=== PATIENT | male | born 1955 | race Caucasian/White ===

== ENCOUNTER 2017-11-25 13:09 | Inpatient (IN) | payer MEDICARE, BC ==
[~2017-11-25] VITALS: Ht 182.9 cm; Wt 95.5 kg
[~2017-11-25 13:09] MED LIST: ASCO500C15 PO; BACL10TA2 PO; BISA-155 PO; BISA10SU60 RC; BISA5TAB10 PO; BUSP10TA10 PO; CHOL10002 PO; FLUT16SP26 BOTHNARES; KRIL1CAP2 PO; MAGN400O6 PO; MAGN64TA10 PO; MULT1TAB74 PO; POTA20TA19 PO; SENN-161 PO; VITA150T PO
[2017-11-25] MEDS ORDERED: ACET-2615 PO (13:49)
[2017-11-25] MEDS ORDERED: HYDR28CR14 TOP (13:49)
[2017-11-25] MEDS ORDERED: LORA10TA7 PO (13:49)
[2017-11-25] MEDS ORDERED: CHOL10002 PO (13:49)
[2017-11-25 14:16] LABS: BASOPHILS % (AUTO) 0.1 % (0-1); EOSINOPHILS % (AUTO) 0.4 % (0-6); HEMATOCRIT 49.5 % (42.0-52.0); HEMOGLOBIN 16.7 g/dl (14.0-17.9); LYMPHOCYTES # (AUTO) 0.7 X10'3 (1.1-4.8); LYMPHOCYTES % (AUTO) 9.6 % (21-51); MEAN CORPUSCULAR HEMOGLOBIN 30.9 PG (27.0-31.0); MEAN CORPUSCULAR HGB CONC 33.8 % (33.0-36.5); MEAN CORPUSCULAR VOLUME 91.6 FL (78-98); MEAN PLATELET VOLUME 7.9 FL (7.4-10.4); MONOCYTES # (AUTO) 0.8 X10'3 (0-0.9); MONOCYTES % (AUTO) 10.1 % (2-12); NEUTROPHILS # (AUTO) 6.2 X10'3 (1.8-7.7); NEUTROPHILS % (AUTO) 79.8 % (42-75); PLATELET COUNT 237 X10'3 (140-440); RED CELL DISTRIBUTION WIDTH 12.6 % (11.5-14.5); WHITE BLOOD COUNT 7.8 X10'3 (4.5-11.0)
[2017-11-25 14:31] LABS: ALANINE AMINOTRANSFERASE 53 U/L (12-78); ALBUMIN 3.6 G/DL (3.4-5.0); ALBUMIN/GLOBULIN RATIO 0.8 (1.1-1.5); ALKALINE PHOSPHATASE 208 IU/L (46-116); ANION GAP 8 (8-16); ASPARTATE AMINO TRANSFERASE 27 U/L (10-37); BILIRUBIN,TOTAL 0.8 MG/DL (0.1-1.0); BLOOD UREA NITROGEN 16 MG/DL (7-18); BUN/CREATININE RATIO 15.2 (5.4-32.0); CALCIUM 9.3 MG/DL (8.5-10.1); CHLORIDE 96 MMOL/L (99-107); CREATININE 1.05 MG/DL (0.60-1.10); GLUCOSE 124 MG/DL (70-104); POTASSIUM 4.5 MMOL/L (3.5-5.1); SODIUM 133 MMOL/L (135-145); TOTAL PROTEIN 8.1 G/DL (6.4-8.2); eGFR 72 ML/MIN
[2017-11-25] MEDS ORDERED: levoFLOXACIN-Levaquin 750MG/D5 150 ML IV STA (15:14)
[2017-11-25] MEDS ORDERED: magnesium Cl slow-release 64mg tablet PO PRN (15:55)
[2017-11-25] MEDS ORDERED: sennosides 8.6mg tablet PO PRN (15:55)
[2017-11-25] MEDS ORDERED: magnesium hydroxide 30ml (MOM) UD suspension PO PRN ×2 (15:55)
[2017-11-25] MEDS ORDERED: mag hydrox/Alum hydrox/simeth 30ml oral suspension PO PRN (15:55)
[2017-11-25] MEDS ORDERED: bisacodyl 5mg tablet.DR PO PRN (15:55)
[2017-11-25] MEDS ORDERED: potassium Cl 20 mEq SR tablet PO PRN ×2 (15:55)
[2017-11-25] MEDS ORDERED: magnesium 2GM in 50ml NS 50 ML IV PRN (15:55)
[2017-11-25] MEDS ORDERED: magnesium 4gm in 100ml NS 100 ML IV PRN (15:55)
[2017-11-25] MEDS ORDERED: potassium Cl 40MEQ/NS 500ml 500 ML IV PRN ×2 (15:55)
[2017-11-25] MEDS ORDERED: acetaminophen 325mg tablet PO PRN ×3 (15:55)
[2017-11-25] MEDS ORDERED: ondansetron/PF 4mg/2ml inj IV PRN (15:55)
[2017-11-25] MEDS ORDERED: [UNRECOGNIZED DRUG - REMARK] (17:03)
[2017-11-25] MEDS ORDERED: BISA-155 PO (17:10)
[2017-11-25] MEDS: normal saline 1000ml 1,000 ML IV SCH (17:32)
[2017-11-25] MEDS: ascorbic acid 500mg tablet PO SCH (20:00)
[2017-11-25] MEDS: HYDROcodone/acetaminophen 5mg/325mg tablet PO PRN (20:19)
[2017-11-25] MEDS: baclofen 10mg tablet PO PRN (20:19)
[2017-11-25] MEDS: loratadine 10mg tablet PO SCH (20:34)
[2017-11-25] MEDS: hydrocortisone 1% cream 28gm TP SCH (20:34)
[2017-11-25] MEDS ORDERED: temazepam 15mg capsule PO PRN (21:00)
[2017-11-26] MEDS: normal saline 1000ml 1,000 ML IV SCH (05:58)
[2017-11-26] MEDS: HYDROcodone/acetaminophen 5mg/325mg tablet PO PRN ×2 (05:59→09:49)
[2017-11-26 06:49] LABS: BASOPHILS % (AUTO) 0.3 % (0-1); EOSINOPHILS # (AUTO) 0.1 X10'3 (0-0.9); EOSINOPHILS % (AUTO) 0.8 % (0-6); HEMATOCRIT 43.6 % (42.0-52.0); HEMOGLOBIN 14.9 g/dl (14.0-17.9); LYMPHOCYTES # (AUTO) 0.8 X10'3 (1.1-4.8); LYMPHOCYTES % (AUTO) 9.1 % (21-51); MEAN CORPUSCULAR HGB CONC 34.3 % (33.0-36.5); MEAN CORPUSCULAR VOLUME 90.3 FL (78-98); MEAN PLATELET VOLUME 7.8 FL (7.4-10.4); MONOCYTES % (AUTO) 10.3 % (2-12); NEUTROPHILS # (AUTO) 7.4 X10'3 (1.8-7.7); NEUTROPHILS % (AUTO) 79.5 % (42-75); PLATELET COUNT 215 X10'3 (140-440); RED BLOOD COUNT 4.82 X10'6 (4.70-6.10); WHITE BLOOD COUNT 9.3 X10'3 (4.5-11.0)
[2017-11-26 07:11] LABS: ANION GAP 11 (8-16); BLOOD UREA NITROGEN 19 MG/DL (7-18); BUN/CREATININE RATIO 24.4 (5.4-32.0); CALCIUM 8.7 MG/DL (8.5-10.1); CHLORIDE 98 MMOL/L (99-107); CREATININE 0.78 MG/DL (0.60-1.10); GLUCOSE 104 MG/DL (70-104); MAGNESIUM 1.7 MG/DL (1.5-2.4); POTASSIUM 4.3 MMOL/L (3.5-5.1); SODIUM 133 MMOL/L (135-145); eGFR > 90 ML/MIN
[2017-11-26] MEDS: fluticasone nasal spray 16GM bottle NS SCH (08:00)
[2017-11-26] MEDS: vitamin B comp w/Vit. C tab 1 TAB TABLET PO SCH (08:00)
[2017-11-26] MEDS: magnesium Cl slow-release 64mg tablet PO SCH (08:00)
[2017-11-26] MEDS ORDERED: EPA PO SCH (08:00)
[2017-11-26] MEDS ORDERED: non-formulary drug (Cholecalciferol (Vitamin D3) (Vitamin D3) 2 TAB) PO SCH (08:00)
[2017-11-26] MEDS: K and/or MAG REPLACEMENT MC SCH (08:00)
[2017-11-26] MEDS: hydrocortisone 1% cream 28gm TP SCH ×3 (08:00→21:00)
[2017-11-26] MEDS ORDERED: DHA PO SCH (08:00)
[2017-11-26] MEDS ORDERED: OMEGA PO SCH (08:00)
[2017-11-26] MEDS: cholecalciferol (vitamin D) 400 unit tablet PO SCH (08:00)
[2017-11-26] MEDS ORDERED: KRILL OIL PO SCH (08:00)
[2017-11-26] MEDS: levoFLOXACIN-Levaquin 500mg/D5 100 ML IV SCH (09:49)
[2017-11-26] MEDS: multivitamins, therapeutics tablet PO SCH (09:49)
[2017-11-26] MEDS: ascorbic acid 500mg tablet PO SCH ×2 (09:50→20:38)
[2017-11-26] MEDS: enoxaparin 40mg/0.4ml syringe SUBCUT SCH (09:50)
[2017-11-26] MEDS: potassium Cl 20 mEq SR tablet PO SCH (09:54)
[2017-11-26 10:30] VITALS: BP 144/78
[2017-11-26 15:00] VITALS: BP 156/80
[2017-11-26 19:00] VITALS: BP 138/82
[2017-11-26] MEDS: lactobacillus rhamnosus 10,000 MMU CELLS/CAPSULE PO SCH (20:38)
[2017-11-26] MEDS: loratadine 10mg tablet PO SCH (21:00)
[2017-11-26 23:00] VITALS: BP 150/82
[2017-11-27 03:00] VITALS: BP 149/76
[2017-11-27 05:30] VITALS: BP 135/78
[2017-11-27 06:03] LABS: BASOPHILS % (AUTO) 0.3 % (0-1); EOSINOPHILS # (AUTO) 0.2 X10'3 (0-0.9); EOSINOPHILS % (AUTO) 3.6 % (0-6); HEMATOCRIT 40.7 % (42.0-52.0); HEMOGLOBIN 14.1 g/dl (14.0-17.9); LYMPHOCYTES # (AUTO) 1.3 X10'3 (1.1-4.8); LYMPHOCYTES % (AUTO) 21.4 % (21-51); MEAN CORPUSCULAR HEMOGLOBIN 31.6 PG (27.0-31.0); MEAN CORPUSCULAR HGB CONC 34.7 % (33.0-36.5); MEAN CORPUSCULAR VOLUME 91.1 FL (78-98); MEAN PLATELET VOLUME 8.4 FL (7.4-10.4); MONOCYTES # (AUTO) 0.9 X10'3 (0-0.9); MONOCYTES % (AUTO) 13.6 % (2-12); NEUTROPHILS # (AUTO) 3.8 X10'3 (1.8-7.7); NEUTROPHILS % (AUTO) 61.1 % (42-75); PLATELET COUNT 199 X10'3 (140-440); RED BLOOD COUNT 4.46 X10'6 (4.70-6.10); RED CELL DISTRIBUTION WIDTH 12.6 % (11.5-14.5); WHITE BLOOD COUNT 6.3 X10'3 (4.5-11.0)
[2017-11-27 06:16] LABS: ALBUMIN 2.8 G/DL (3.4-5.0); ANION GAP 10 (8-16); BLOOD UREA NITROGEN 16 MG/DL (7-18); BUN/CREATININE RATIO 19.3 (5.4-32.0); CALCIUM 8.7 MG/DL (8.5-10.1); CHLORIDE 101 MMOL/L (99-107); CREATININE 0.83 MG/DL (0.60-1.10); GLUCOSE 98 MG/DL (70-104); MAGNESIUM 1.8 MG/DL (1.5-2.4); POTASSIUM 4.2 MMOL/L (3.5-5.1); SODIUM 136 MMOL/L (135-145); TOTAL CARBON DIOXIDE 25.4 MMOL/L (24-32); eGFR > 90 ML/MIN
[2017-11-27] MEDS: K and/or MAG REPLACEMENT MC SCH (08:00)
[2017-11-27] MEDS: enoxaparin 40mg/0.4ml syringe SUBCUT SCH (08:42)
[2017-11-27] MEDS: magnesium Cl slow-release 64mg tablet PO SCH (08:43)
[2017-11-27] MEDS: ascorbic acid 500mg tablet PO SCH ×2 (08:43→20:08)
[2017-11-27] MEDS: multivitamins, therapeutics tablet PO SCH (08:43)
[2017-11-27] MEDS: potassium Cl 20 mEq SR tablet PO SCH (08:43)
[2017-11-27] MEDS: lactobacillus rhamnosus 10,000 MMU CELLS/CAPSULE PO SCH ×2 (08:43→20:08)
[2017-11-27] MEDS: levoFLOXACIN-Levaquin 500mg/D5 100 ML IV SCH (08:43)
[2017-11-27 11:00] VITALS: BP 151/77
[2017-11-27] MEDS: cholecalciferol (vitamin D) 400 unit tablet PO SCH (11:02)
[2017-11-27] MEDS: vitamin B comp w/Vit. C tab 1 TAB TABLET PO SCH (11:02)
[2017-11-27] MEDS: fluticasone nasal spray 16GM bottle NS SCH (11:02)
[2017-11-27] MEDS: hydrocortisone 1% cream 28gm TP SCH ×3 (11:03→20:52)
[2017-11-27 15:00] VITALS: BP 143/74
[2017-11-27] MEDS: baclofen 10mg tablet PO PRN (16:06)
[2017-11-27 18:00] VITALS: BP 153/87
[2017-11-27] MEDS: loratadine 10mg tablet PO SCH (20:08)
[2017-11-27 22:00] VITALS: BP 144/77
[2017-11-28 03:00] VITALS: BP 126/72
[2017-11-28 06:00] VITALS: BP 144/78
[2017-11-28] MEDS: magnesium Cl slow-release 64mg tablet PO SCH (07:28)
[2017-11-28] MEDS: levoFLOXACIN-Levaquin 500mg/D5 100 ML IV SCH (07:28)
[2017-11-28] MEDS: lactobacillus rhamnosus 10,000 MMU CELLS/CAPSULE PO SCH (07:29)
[2017-11-28] MEDS: cholecalciferol (vitamin D) 400 unit tablet PO SCH (07:29)
[2017-11-28] MEDS: ascorbic acid 500mg tablet PO SCH (07:29)
[2017-11-28] MEDS: multivitamins, therapeutics tablet PO SCH (07:29)
[2017-11-28] MEDS: vitamin B comp w/Vit. C tab 1 TAB TABLET PO SCH (07:29)
[2017-11-28] MEDS: potassium Cl 20 mEq SR tablet PO SCH (07:29)
[2017-11-28] MEDS: K and/or MAG REPLACEMENT MC SCH (08:00)
[2017-11-28] MEDS: hydrocortisone 1% cream 28gm TP SCH ×2 (08:00→12:09)
[2017-11-28] MEDS: fluticasone nasal spray 16GM bottle NS SCH (09:52)
[2017-11-28] MEDS: enoxaparin 40mg/0.4ml syringe SUBCUT SCH (09:52)
[2017-11-28 11:00] VITALS: BP 162/90
[2017-11-28] MEDS ORDERED: LEVO500T2 PO (13:14)
== END 2017-11-28 15:26 | DRG 194 ==
LOC: ER 13:09 → ED HOLD 16:01 → EDBEDREQ 11-26 09:30 → PCU 3S 11-26 10:20 → UNDODISIN 11-27 11:37
PROVIDERS: ADMIT Internal Medicine; ATTEND Internal Medicine
DX: J18.1 Lobar pneumonia, unspecified organism (principal); E87.1 Hypo-osmolality and hyponatremia; G35 Multiple sclerosis; I89.0 Lymphedema, not elsewhere classified; R09.02 Hypoxemia; Z79.899 Other long term (current) drug therapy; Z83.3 Family history of diabetes mellitus; Z82.61 Family history of arthritis
CPT/HCPCS: 36415; 71045; 80048; 80053; 83605; 83735; 85025; 87040; 87070; 87502; 87503; 93005; 99285; J1650; J1956; J7030

== ENCOUNTER 2018-02-06 16:43 | Inpatient (IN) | payer MEDICARE, BC ==
[~2018-02-06] VITALS: Ht 182.9 cm; Wt 99.0 kg
[~2018-02-06 16:43] MED LIST changes: +ACET-2615 PO; -BISA10SU60 RC; +HYDR28CR14 TOP; +LORA10TA7 PO; -MAGN64TA10 PO; +[UNRECOGNIZED DRUG - REMARK]
[2018-02-06] MEDS ORDERED: normal saline 1000ML IV soln IVB ONE (18:05)
[2018-02-06 19:23] LABS: ALANINE AMINOTRANSFERASE 83 U/L (12-78); ALBUMIN 3.6 G/DL (3.4-5.0); ALKALINE PHOSPHATASE 124 IU/L (46-116); ANION GAP 2 (8-16); ASPARTATE AMINO TRANSFERASE 35 U/L (10-37); BILIRUBIN,TOTAL 0.4 MG/DL (0.1-1.0); BLOOD UREA NITROGEN 14 MG/DL (7-18); BUN/CREATININE RATIO 16.7 (5.4-32.0); CALCIUM 9.1 MG/DL (8.5-10.1); CHLORIDE 109 MMOL/L (99-107); CREATININE 0.84 MG/DL (0.60-1.10); GLUCOSE 123 MG/DL (70-104); LIPASE 84 U/L (73-393); POTASSIUM 4.3 MMOL/L (3.5-5.1); SODIUM 144 MMOL/L (135-145); TOTAL CARBON DIOXIDE 33.1 MMOL/L (24-32); TOTAL PROTEIN 7.1 G/DL (6.4-8.2); eGFR > 90 ML/MIN
[2018-02-06 19:34] LABS: BASOPHILS % (AUTO) 0.2 % (0-1); EOSINOPHILS # (AUTO) 0.2 X10'3 (0-0.9); EOSINOPHILS % (AUTO) 2.7 % (0-6); HEMATOCRIT 43.3 % (42.0-52.0); HEMOGLOBIN 14.5 g/dl (14.0-17.9); LYMPHOCYTES # (AUTO) 1.4 X10'3 (1.1-4.8); LYMPHOCYTES % (AUTO) 17.2 % (21-51); MEAN CORPUSCULAR HGB CONC 33.5 % (33.0-36.5); MEAN CORPUSCULAR VOLUME 92.7 FL (78-98); MEAN PLATELET VOLUME 8.6 FL (7.4-10.4); MONOCYTES # (AUTO) 0.9 X10'3 (0-0.9); MONOCYTES % (AUTO) 10.9 % (2-12); NEUTROPHILS # (AUTO) 5.6 X10'3 (1.8-7.7); PLATELET COUNT 298 X10'3 (140-440); RED BLOOD COUNT 4.67 X10'6 (4.70-6.10); WHITE BLOOD COUNT 8.1 X10'3 (4.5-11.0)
[2018-02-06] MEDS ORDERED: POTASSIUM CHLORIDE 20 MEQ (19:50)
[2018-02-06] MEDS ORDERED: BISACODYL 5 MG (19:50)
[2018-02-06] MEDS ORDERED: Buspirone Hcl 10mg Tab (19:50)
[2018-02-06] MEDS ORDERED: temazepam 15mg capsule PO PRN (21:00)
[2018-02-06] MEDS ORDERED: normal saline 1000ml 1,000 ML IV SCH (21:16)
[2018-02-06] MEDS ORDERED: magnesium 4gm in 100ml NS 100 ML IV PRN (21:20)
[2018-02-06] MEDS ORDERED: neostigmine methylsulfate 1 MG/ML 10ml vial IV ONE (21:20)
[2018-02-06] MEDS ORDERED: magnesium 2GM in 50ml NS 50 ML IV PRN (21:20)
[2018-02-06] MEDS ORDERED: ondansetron/PF 4mg/2ml inj IV PRN (21:20)
[2018-02-06] MEDS ORDERED: potassium Cl 20 mEq SR tablet PO PRN ×2 (21:20)
[2018-02-06] MEDS ORDERED: magnesium hydroxide 30ml (MOM) UD suspension PO PRN (21:20)
[2018-02-06] MEDS ORDERED: potassium Cl 40MEQ/NS 500ml 500 ML IV PRN ×2 (21:20)
[2018-02-06] MEDS ORDERED: mag hydrox/Alum hydrox/simeth 30ml oral suspension PO PRN (21:20)
[2018-02-06] MEDS ORDERED: acetaminophen 325mg tablet PO PRN ×3 (21:20→21:35)
[2018-02-06] MEDS ORDERED: magnesium Cl slow-release 64mg tablet PO PRN (21:20)
[2018-02-06] MEDS ORDERED: baclofen 10mg tablet PO PRN (21:25)
[2018-02-06] MEDS ORDERED: non-formulary drug (Acetaminophen (Tylenol Extra Strength) 2 TAB) PO PRN (21:25)
[2018-02-06 22:39] LABS: OCCULT BLOOD STOOL NEGATIVE (Neg)
[2018-02-06 22:45] VITALS: BP 125/86
[2018-02-07 05:30] LABS: BASOPHILS % (AUTO) 0.6 % (0-1); EOSINOPHILS # (AUTO) 0.2 X10'3 (0-0.9); EOSINOPHILS % (AUTO) 3.4 % (0-6); HEMATOCRIT 37.5 % (42.0-52.0); HEMOGLOBIN 12.6 g/dl (14.0-17.9); LYMPHOCYTES # (AUTO) 1.4 X10'3 (1.1-4.8); LYMPHOCYTES % (AUTO) 22.8 % (21-51); MEAN CORPUSCULAR HEMOGLOBIN 31.2 PG (27.0-31.0); MEAN CORPUSCULAR HGB CONC 33.6 % (33.0-36.5); MEAN PLATELET VOLUME 8.7 FL (7.4-10.4); MONOCYTES # (AUTO) 0.8 X10'3 (0-0.9); MONOCYTES % (AUTO) 13.5 % (2-12); NEUTROPHILS # (AUTO) 3.6 X10'3 (1.8-7.7); NEUTROPHILS % (AUTO) 59.7 % (42-75); PLATELET COUNT 263 X10'3 (140-440); RED BLOOD COUNT 4.03 X10'6 (4.70-6.10); RED CELL DISTRIBUTION WIDTH 13.6 % (11.5-14.5)
[2018-02-07 06:04] LABS: ALANINE AMINOTRANSFERASE 62 U/L (12-78); ALBUMIN/GLOBULIN RATIO 1.1 (1.1-1.5); ANION GAP 8 (8-16); ASPARTATE AMINO TRANSFERASE 29 U/L (10-37); BILIRUBIN,TOTAL 0.6 MG/DL (0.1-1.0); BLOOD UREA NITROGEN 13 MG/DL (7-18); BUN/CREATININE RATIO 16.5 (5.4-32.0); CHLORIDE 108 MMOL/L (99-107); CREATININE 0.79 MG/DL (0.60-1.10); GLUCOSE 110 MG/DL (70-104); PHOSPHORUS 2.8 MG/DL (2.3-4.5); POTASSIUM 3.4 MMOL/L (3.5-5.1); SODIUM 143 MMOL/L (135-145); TOTAL CARBON DIOXIDE 26.7 MMOL/L (24-32); TOTAL PROTEIN 5.7 G/DL (6.4-8.2); eGFR > 90 ML/MIN
[2018-02-07 06:05] LABS: ALKALINE PHOSPHATASE 100 IU/L (46-116)
[2018-02-07 08:00] VITALS: BP 118/61
[2018-02-07] MEDS: potassium Cl 20 mEq SR tablet PO SCH (08:00)
[2018-02-07] MEDS: K and/or MAG REPLACEMENT MC SCH (08:00)
[2018-02-07] MEDS: potassium chloride 8mEq ER tablet PO SCH (08:00)
[2018-02-07] MEDS: busPIRone 5mg tablet PO SCH ×2 (08:00→20:57)
[2018-02-07] MEDS ORDERED: neostigmine methylsulfate 1 MG/ML 10ml vial IV ONE ×2 (10:30→16:35)
[2018-02-07] MEDS ORDERED: bisacodyl 5mg tablet.DR PO PRN (10:45)
[2018-02-07] MEDS: potassium CL 20mEq in D5-1/2NS 1,000 ML IV SCH ×2 (11:14→20:52)
[2018-02-07] MEDS: fluticasone nasal spray 16GM bottle NS SCH (11:14)
[2018-02-07 12:00] VITALS: BP 176/84
[2018-02-07] MEDS ORDERED: sodium phosphate inj. 30 MMOL in dextrose 5%-water 250 ML IV PRN (16:30)
[2018-02-07] MEDS ORDERED: albuterol 2.5 MG/3 ML nebule NEB PRN (16:30)
[2018-02-07] MEDS: K, MAG and/or Phos replacement - Verify level? MC SCH (16:30)
[2018-02-07] MEDS: pantoprazole 40 MG vial IV SCH (16:30)
[2018-02-07] MEDS ORDERED: magnesium 2GM in 50ml NS 50 ML IV PRN (16:30)
[2018-02-07] MEDS ORDERED: magnesium 4gm in 100ml NS 100 ML IV PRN (16:30)
[2018-02-07] MEDS ORDERED: sodium phosphate inj. 15 MMOL in dextrose 5%-water 150 ML IV PRN (16:30)
[2018-02-07] MEDS ORDERED: potassium Cl 40MEQ/NS 500ml 500 ML IV PRN ×2 (16:30)
[2018-02-07 17:27] LABS: PARTIAL THROMBOPLASTIN TIME 27 SECONDS (22-32)
[2018-02-07] MEDS ORDERED: atropine 0.1mg/ml 10ml syringe ONE (19:11)
[2018-02-07 20:00] VITALS: BP 184/87
[2018-02-07] MEDS: sennosides/docusate sodium tablet PO SCH (20:58)
[2018-02-07 21:00] VITALS: BP 184/87
[2018-02-07] MEDS ORDERED: loratadine 10mg tablet PO SCH (21:00)
[2018-02-07] MEDS: hydrALAZINE 20mg/ml inj. IV PRN (21:44)
[2018-02-07 22:00] VITALS: BP 154/73
[2018-02-07 23:00] VITALS: BP 139/80
[2018-02-08] VITALS (23 sets, daily range): BP systolic 109–191; BP diastolic 62–129
[2018-02-08 05:23] LABS: BASOPHILS % (AUTO) 0.2 % (0-1); EOSINOPHILS # (AUTO) 0.2 X10'3 (0-0.9); EOSINOPHILS % (AUTO) 3.1 % (0-6); HEMATOCRIT 39.1 % (42.0-52.0); HEMOGLOBIN 13.2 g/dl (14.0-17.9); LYMPHOCYTES # (AUTO) 1.3 X10'3 (1.1-4.8); LYMPHOCYTES % (AUTO) 19.3 % (21-51); MEAN CORPUSCULAR HEMOGLOBIN 31.2 PG (27.0-31.0); MEAN CORPUSCULAR HGB CONC 33.8 % (33.0-36.5); MEAN CORPUSCULAR VOLUME 92.3 FL (78-98); MEAN PLATELET VOLUME 8.2 FL (7.4-10.4); MONOCYTES # (AUTO) 0.7 X10'3 (0-0.9); MONOCYTES % (AUTO) 10.8 % (2-12); NEUTROPHILS # (AUTO) 4.5 X10'3 (1.8-7.7); NEUTROPHILS % (AUTO) 66.6 % (42-75); PLATELET COUNT 277 X10'3 (140-440); RED BLOOD COUNT 4.23 X10'6 (4.70-6.10); RED CELL DISTRIBUTION WIDTH 13.3 % (11.5-14.5); WHITE BLOOD COUNT 6.8 X10'3 (4.5-11.0)
[2018-02-08 06:03] LABS: ALANINE AMINOTRANSFERASE 59 U/L (12-78); ALKALINE PHOSPHATASE 109 IU/L (46-116); ANION GAP 7 (8-16); ASPARTATE AMINO TRANSFERASE 28 U/L (10-37); BILIRUBIN,TOTAL 0.8 MG/DL (0.1-1.0); BLOOD UREA NITROGEN 6 MG/DL (7-18); BUN/CREATININE RATIO 8.7 (5.4-32.0); CALCIUM 8.2 MG/DL (8.5-10.1); CHLORIDE 106 MMOL/L (99-107); CREATININE 0.69 MG/DL (0.60-1.10); GLUCOSE 133 MG/DL (70-104); MAGNESIUM 1.9 MG/DL (1.5-2.4); PHOSPHORUS 2.8 MG/DL (2.3-4.5); POTASSIUM 3.6 MMOL/L (3.5-5.1); SODIUM 140 MMOL/L (135-145); TOTAL CARBON DIOXIDE 26.9 MMOL/L (24-32); TOTAL PROTEIN 5.9 G/DL (6.4-8.2); eGFR > 90 ML/MIN
[2018-02-08] MEDS: potassium CL 20mEq in D5-1/2NS 1,000 ML IV SCH ×3 (06:15→16:35)
[2018-02-08] MEDS: K and/or MAG REPLACEMENT MC SCH (06:56)
[2018-02-08] MEDS: K, MAG and/or Phos replacement - Verify level? MC SCH (06:56)
[2018-02-08] MEDS: potassium Cl 20 mEq SR tablet PO SCH (08:00)
[2018-02-08] MEDS: potassium chloride 8mEq ER tablet PO SCH (08:00)
[2018-02-08] MEDS: fluticasone nasal spray 16GM bottle NS SCH (08:00)
[2018-02-08] MEDS: lactulose 20gm/30ml cup PO SCH ×3 (09:37→13:00)
[2018-02-08] MEDS: pantoprazole 40 MG vial IV SCH (09:37)
[2018-02-08] MEDS: busPIRone 5mg tablet PO SCH ×2 (09:38→21:01)
[2018-02-08] MEDS: sennosides/docusate sodium tablet PO SCH (09:38)
[2018-02-08] MEDS ORDERED: lactulose 20gm/30ml cup PO ONE (14:25)
[2018-02-08] MEDS: hydrALAZINE 20mg/ml inj. IV PRN (18:20)
[2018-02-08] MEDS: bisacodyl 5mg tablet.DR PO SCH (20:59)
[2018-02-08] MEDS: hydrocortisone 1% cream 28gm TP SCH (21:00)
[2018-02-09] VITALS (15 sets, daily range): BP systolic 84–176; BP diastolic 58–89
[2018-02-09] MEDS: hydrALAZINE 20mg/ml inj. IV PRN (00:16)
[2018-02-09] MEDS: potassium CL 20mEq in D5-1/2NS 1,000 ML IV SCH (01:49)
[2018-02-09 05:31] LABS: BASOPHILS % (AUTO) 0.1 % (0-1); EOSINOPHILS # (AUTO) 0.2 X10'3 (0-0.9); EOSINOPHILS % (AUTO) 1.7 % (0-6); HEMATOCRIT 39.5 % (42.0-52.0); HEMOGLOBIN 13.2 g/dl (14.0-17.9); LYMPHOCYTES # (AUTO) 1.1 X10'3 (1.1-4.8); LYMPHOCYTES % (AUTO) 10.2 % (21-51); MEAN CORPUSCULAR HEMOGLOBIN 31.4 PG (27.0-31.0); MEAN CORPUSCULAR HGB CONC 33.5 % (33.0-36.5); MEAN CORPUSCULAR VOLUME 93.6 FL (78-98); MEAN PLATELET VOLUME 8.5 FL (7.4-10.4); MONOCYTES # (AUTO) 0.8 X10'3 (0-0.9); MONOCYTES % (AUTO) 7.4 % (2-12); NEUTROPHILS % (AUTO) 80.6 % (42-75); PLATELET COUNT 274 X10'3 (140-440); RED BLOOD COUNT 4.22 X10'6 (4.70-6.10); RED CELL DISTRIBUTION WIDTH 13.5 % (11.5-14.5); WHITE BLOOD COUNT 11.2 X10'3 (4.5-11.0)
[2018-02-09 06:12] LABS: ALANINE AMINOTRANSFERASE 52 U/L (12-78); ALKALINE PHOSPHATASE 108 IU/L (46-116); ANION GAP 8 (8-16); ASPARTATE AMINO TRANSFERASE 26 U/L (10-37); BILIRUBIN,TOTAL 0.7 MG/DL (0.1-1.0); BLOOD UREA NITROGEN 3 MG/DL (7-18); CALCIUM 8.3 MG/DL (8.5-10.1); CHLORIDE 106 MMOL/L (99-107); GLUCOSE 130 MG/DL (70-104); MAGNESIUM 1.7 MG/DL (1.5-2.4); POTASSIUM 3.7 MMOL/L (3.5-5.1); SODIUM 139 MMOL/L (135-145); TOTAL CARBON DIOXIDE 24.6 MMOL/L (24-32)
[2018-02-09 06:31] LABS: BUN/CREATININE RATIO 3.7 (5.4-32.0); CREATININE 0.81 MG/DL (0.60-1.10); eGFR > 90 ML/MIN
[2018-02-09] MEDS: busPIRone 5mg tablet PO SCH (07:23)
[2018-02-09] MEDS: bisacodyl 5mg tablet.DR PO SCH (07:23)
[2018-02-09] MEDS: pantoprazole 40 MG vial IV SCH (07:23)
[2018-02-09] MEDS: hydrocortisone 1% cream 28gm TP SCH ×2 (07:24→13:08)
[2018-02-09] MEDS: K, MAG and/or Phos replacement - Verify level? MC SCH (08:00)
[2018-02-09] MEDS: fluticasone nasal spray 16GM bottle NS SCH (08:00)
== END 2018-02-09 14:45 | DRG 392 ==
LOC: ER 16:46 → ED HOLD 21:16 → SUR 3N 22:35 → ICU 2S 02-07 18:43
PROVIDERS: ADMIT Family Medicine; ATTEND Internal Medicine Critical Care Medicine
DX: K59.8 Other specified functional intestinal disorders (principal); E83.42 Hypomagnesemia; G35 Multiple sclerosis; E87.6 Hypokalemia; K31.89 Other diseases of stomach and duodenum; Z99.3 Dependence on wheelchair; Z83.3 Family history of diabetes mellitus; Z82.61 Family history of arthritis; Z82.49 Family history of ischemic heart disease and other diseases of the circulatory system
CPT/HCPCS: 36415; 71045; 74018; 74176; 80053; 82272; 82948; 83690; 83735; 84100; 84443; 85025; 85610; 85730; 87070; 92616; 97110; 97162; 97530; A4353; A6213; C9113; J0360; J0461; J2710; J7030

== ENCOUNTER 2018-04-10 15:02 | Emergency (ER) | payer MEDICARE, BC ==
[~2018-04-10] VITALS: Ht 182.9 cm; Wt 95.5 kg
[~2018-04-10 15:02] MED LIST changes: +BISACODYL 5 MG; +Buspirone Hcl 10mg Tab; +POTASSIUM CHLORIDE 20 MEQ
[2018-04-10] MEDS ORDERED: neostigmine methylsulfate 1 MG/ML 10ml vial IV ONE (15:45)
[2018-04-10 16:11] LABS: BASOPHILS % (AUTO) 0.4 % (0-1); EOSINOPHILS # (AUTO) 0.2 X10'3 (0-0.9); EOSINOPHILS % (AUTO) 2.1 % (0-6); HEMATOCRIT 45.8 % (42.0-52.0); HEMOGLOBIN 15.4 g/dl (14.0-17.9); LYMPHOCYTES # (AUTO) 1.1 X10'3 (1.1-4.8); LYMPHOCYTES % (AUTO) 14.9 % (21-51); MEAN CORPUSCULAR HGB CONC 33.6 % (33.0-36.5); MEAN CORPUSCULAR VOLUME 92.2 FL (78-98); MONOCYTES # (AUTO) 0.6 X10'3 (0-0.9); NEUTROPHILS # (AUTO) 5.3 X10'3 (1.8-7.7); NEUTROPHILS % (AUTO) 74.6 % (42-75); PLATELET COUNT 402 X10'3 (140-440); RED BLOOD COUNT 4.97 X10'6 (4.70-6.10); RED CELL DISTRIBUTION WIDTH 12.5 % (11.5-14.5); WHITE BLOOD COUNT 7.2 X10'3 (4.5-11.0)
[2018-04-10 16:26] LABS: ALANINE AMINOTRANSFERASE 46 U/L (12-78); ALBUMIN 3.8 G/DL (3.4-5.0); ALBUMIN/GLOBULIN RATIO 0.9 (1.1-1.5); ALKALINE PHOSPHATASE 140 IU/L (46-116); ANION GAP 8 (8-16); ASPARTATE AMINO TRANSFERASE 21 U/L (10-37); BILIRUBIN,TOTAL 0.3 MG/DL (0.1-1.0); BLOOD UREA NITROGEN 16 MG/DL (7-18); CALCIUM 9.4 MG/DL (8.5-10.1); CHLORIDE 102 MMOL/L (99-107); CREATININE 0.89 MG/DL (0.60-1.10); GLUCOSE 112 MG/DL (70-104); POTASSIUM 3.8 MMOL/L (3.5-5.1); SODIUM 139 MMOL/L (135-145); TOTAL CARBON DIOXIDE 28.6 MMOL/L (24-32); eGFR 87 ML/MIN
[2018-04-10 17:28] LABS: CLARITY,URINE SLIGHTLY CLOUDY (Clear); COLOR,URINE YELLOW (Yellow); GLUCOSE, URINE NEGATIVE (Neg); KETONES,URINE 15 mg/dl (Neg); LEUKOCYTE ESTERASE ,URINE MODERATE (Neg); NITRITES, URINE NEGATIVE (Neg); OCCULT BLOOD,URINE NEGATIVE (Neg); PROTEIN,URINE NEGATIVE (Neg); UROBILINOGEN,URINE 0.2 E.U/dL (0.2-1.0)
[2018-04-10 17:31] LABS: UA COLLECTION TYPE STRAIGHT CATH
[2018-04-10 17:36] LABS: BACTERIA,URINE 4+ /HPF (Neg); SQUAMOUS EPITHELIAL CELL,UR FEW /LPF (FEW)
[2018-04-10 17:37] LABS: RBC,URINE 0-2 /HPF (0-2); WBC,URINE 50-100 /HPF (0-4)
[2018-04-10] MEDS ORDERED: normal saline 1000ML IV soln IVB ONE (18:15)
[2018-04-10] MEDS ORDERED: cephalexin 250mg capsule PO ONE (20:45)
[2018-04-10] MEDS ORDERED: CEPH500C2 PO (20:45)
[2018-04-10 21:12] VITALS: BP 182/102
== END 2018-04-10 21:14 | disposition home or self-care (01) ==
LOC: ER 15:02
DX: K59.00 Constipation, unspecified (principal); N39.0 Urinary tract infection, site not specified; Z99.3 Dependence on wheelchair; Z79.899 Other long term (current) drug therapy
CPT/HCPCS: 36415; 74018; 80053; 81001; 85025; 87088; 96374; 99285; A4353; J2710; J7030; 87077; 87186

== ENCOUNTER 2018-08-05 13:55 | Inpatient (IN) | payer MEDICARE, BC ==
[~2018-08-05] VITALS: Ht 182.9 cm; Wt 90.9 kg
[~2018-08-05 13:55] MED LIST changes: -BACL10TA2 PO; -BISACODYL 5 MG; -Buspirone Hcl 10mg Tab; +DILT30TA5 PO; -LORA10TA7 PO; -POTASSIUM CHLORIDE 20 MEQ; -[UNRECOGNIZED DRUG - REMARK]
[2018-08-05 15:00] LABS: BASOPHILS % (AUTO) 0.3 % (0-1); EOSINOPHILS # (AUTO) 0.2 X10'3 (0-0.9); HEMATOCRIT 44.9 % (42.0-52.0); HEMOGLOBIN 14.8 g/dl (14.0-17.9); LYMPHOCYTES # (AUTO) 1.5 X10'3 (1.1-4.8); LYMPHOCYTES % (AUTO) 23.5 % (21-51); MEAN CORPUSCULAR HEMOGLOBIN 30.9 PG (27.0-31.0); MEAN CORPUSCULAR VOLUME 93.4 FL (78-98); MEAN PLATELET VOLUME 7.7 FL (7.4-10.4); MONOCYTES # (AUTO) 0.7 X10'3 (0-0.9); NEUTROPHILS # (AUTO) 3.9 X10'3 (1.8-7.7); NEUTROPHILS % (AUTO) 62.2 % (42-75); PLATELET COUNT 450 X10'3 (140-440); RED BLOOD COUNT 4.81 X10'6 (4.70-6.10); RED CELL DISTRIBUTION WIDTH 12.7 % (11.5-14.5); WHITE BLOOD COUNT 6.3 X10'3 (4.5-11.0)
[2018-08-05 15:10] LABS: PROTHROMBIN TIME 10.2 SECONDS (9.0-12.0)
[2018-08-05 15:23] LABS: ALANINE AMINOTRANSFERASE 50 U/L (12-78); ALBUMIN 3.6 G/DL (3.4-5.0); ALBUMIN/GLOBULIN RATIO 0.9 (1.1-1.5); ALKALINE PHOSPHATASE 134 IU/L (46-116); ANION GAP 8 (8-16); ASPARTATE AMINO TRANSFERASE 26 U/L (10-37); BILIRUBIN,TOTAL 0.4 MG/DL (0.1-1.0); BLOOD UREA NITROGEN 16 MG/DL (7-18); BUN/CREATININE RATIO 19.8 (5.4-32.0); CALCIUM 9.2 MG/DL (8.5-10.1); CHLORIDE 101 MMOL/L (99-107); CREATININE 0.81 MG/DL (0.60-1.10); GLUCOSE 154 MG/DL (70-104); POTASSIUM 3.9 MMOL/L (3.5-5.1); SODIUM 139 MMOL/L (135-145); TOTAL CARBON DIOXIDE 29.8 MMOL/L (24-32); TOTAL PROTEIN 7.4 G/DL (6.4-8.2); eGFR > 90 ML/MIN
[2018-08-05] MEDS: normal saline 1000ml 1,000 ML IV SCH (18:46)
[2018-08-05] MEDS ORDERED: potassium Cl 40MEQ/NS 500ml 500 ML IV PRN ×2 (18:50)
[2018-08-05] MEDS ORDERED: ondansetron/PF 4mg/2ml inj IV PRN (18:50)
[2018-08-05] MEDS ORDERED: morphine 4 MG/ML inj SYRINge IV PRN (18:50)
[2018-08-05] MEDS ORDERED: morphine 2 MG/ML inj. syringe IV PRN (18:50)
[2018-08-05] MEDS ORDERED: magnesium hydroxide 30ml (MOM) UD suspension PO PRN (18:50)
[2018-08-05] MEDS ORDERED: acetaminophen 325mg tablet PO PRN ×2 (18:50)
[2018-08-05] MEDS ORDERED: potassium Cl 20 mEq SR tablet PO PRN ×2 (18:50)
[2018-08-05] MEDS ORDERED: POLY17PO10 PO (19:42)
[2018-08-05] MEDS ORDERED: CEPH500C2 PO (19:42)
[2018-08-05] MEDS ORDERED: PYRI60TA PO (19:42)
[2018-08-05] MEDS ORDERED: CHOL2000 PO (19:42)
[2018-08-05] MEDS ORDERED: MAGN296S50 PO (19:42)
[2018-08-05] MEDS ORDERED: neostigmine methylsulfate 1 MG/ML 10ml vial IV ONE (19:50)
[2018-08-05] MEDS: heparin, porcine 5000 units/ml vial SQ SCH (20:00)
[2018-08-06] MEDS ORDERED: CISatracurium besylate inj. 200 MG in normal saline 250ml IV soln 180 ML IV PRN (02:30)
[2018-08-06] MEDS ORDERED: CISatracurium **Bolus** 2 mg/ml inj IV PRN (02:30)
[2018-08-06] MEDS: normal saline 1000ml 1,000 ML IV SCH ×2 (08:06→20:39)
[2018-08-06 10:38] LABS: BASOPHILS % (AUTO) 0.4 % (0-1); EOSINOPHILS # (AUTO) 0.1 X10'3 (0-0.9); EOSINOPHILS % (AUTO) 2.3 % (0-6); HEMOGLOBIN 13.1 g/dl (14.0-17.9); LYMPHOCYTES # (AUTO) 1.1 X10'3 (1.1-4.8); MEAN CORPUSCULAR HEMOGLOBIN 30.4 PG (27.0-31.0); MEAN CORPUSCULAR HGB CONC 32.7 % (33.0-36.5); MEAN PLATELET VOLUME 7.9 FL (7.4-10.4); MONOCYTES # (AUTO) 0.6 X10'3 (0-0.9); MONOCYTES % (AUTO) 9.7 % (2-12); NEUTROPHILS # (AUTO) 4.6 X10'3 (1.8-7.7); NEUTROPHILS % (AUTO) 70.6 % (42-75); PLATELET COUNT 370 X10'3 (140-440); RED CELL DISTRIBUTION WIDTH 12.8 % (11.5-14.5); WHITE BLOOD COUNT 6.5 X10'3 (4.5-11.0)
[2018-08-06 10:56] LABS: ALANINE AMINOTRANSFERASE 40 U/L (12-78); ALBUMIN/GLOBULIN RATIO 0.9 (1.1-1.5); ALKALINE PHOSPHATASE 124 IU/L (46-116); ANION GAP 10 (8-16); ASPARTATE AMINO TRANSFERASE 22 U/L (10-37); BILIRUBIN,TOTAL 0.5 MG/DL (0.1-1.0); BLOOD UREA NITROGEN 14 MG/DL (7-18); BUN/CREATININE RATIO 18.9 (5.4-32.0); CALCIUM 8.8 MG/DL (8.5-10.1); CHLORIDE 105 MMOL/L (99-107); CREATININE 0.74 MG/DL (0.60-1.10); GLUCOSE 102 MG/DL (70-104); MAGNESIUM 1.8 MG/DL (1.5-2.4); PHOSPHORUS 3.1 MG/DL (2.3-4.5); POTASSIUM 3.7 MMOL/L (3.5-5.1); SODIUM 142 MMOL/L (135-145); TOTAL CARBON DIOXIDE 26.8 MMOL/L (24-32); TOTAL PROTEIN 6.4 G/DL (6.4-8.2); eGFR > 90 ML/MIN
[2018-08-06] MEDS: neostigmine methylsulfate 1 MG/ML 10ml vial IV PRN ×2 (14:33→14:56)
[2018-08-06 19:00] VITALS: BP 150/84
[2018-08-06] MEDS: heparin, porcine 5000 units/ml vial SQ SCH ×2 (20:38→20:41)
[2018-08-06 23:00] VITALS: BP 142/86
[2018-08-07 03:00] VITALS: BP 159/76
[2018-08-07] MEDS: neostigmine methylsulfate 1 MG/ML 10ml vial IV PRN (03:39)
[2018-08-07 05:58] LABS: BASOPHILS % (AUTO) 0.6 % (0-1); EOSINOPHILS # (AUTO) 0.2 X10'3 (0-0.9); EOSINOPHILS % (AUTO) 2.7 % (0-6); HEMATOCRIT 38.5 % (42.0-52.0); HEMOGLOBIN 12.8 g/dl (14.0-17.9); LYMPHOCYTES # (AUTO) 1.4 X10'3 (1.1-4.8); LYMPHOCYTES % (AUTO) 20.2 % (21-51); MEAN CORPUSCULAR HEMOGLOBIN 30.7 PG (27.0-31.0); MEAN CORPUSCULAR HGB CONC 33.1 % (33.0-36.5); MEAN CORPUSCULAR VOLUME 92.7 FL (78-98); MONOCYTES # (AUTO) 0.6 X10'3 (0-0.9); MONOCYTES % (AUTO) 8.8 % (2-12); NEUTROPHILS # (AUTO) 4.5 X10'3 (1.8-7.7); NEUTROPHILS % (AUTO) 67.7 % (42-75); PLATELET COUNT 370 X10'3 (140-440); RED BLOOD COUNT 4.15 X10'6 (4.70-6.10); RED CELL DISTRIBUTION WIDTH 12.6 % (11.5-14.5); WHITE BLOOD COUNT 6.7 X10'3 (4.5-11.0)
[2018-08-07 06:00] VITALS: BP 156/77
[2018-08-07 06:22] LABS: ALANINE AMINOTRANSFERASE 36 U/L (12-78); ALKALINE PHOSPHATASE 113 IU/L (46-116); ANION GAP 12 (8-16); ASPARTATE AMINO TRANSFERASE 22 U/L (10-37); BILIRUBIN,TOTAL 0.6 MG/DL (0.1-1.0); BLOOD UREA NITROGEN 12 MG/DL (7-18); BUN/CREATININE RATIO 18.5 (5.4-32.0); CALCIUM 8.4 MG/DL (8.5-10.1); CHLORIDE 104 MMOL/L (99-107); CREATININE 0.65 MG/DL (0.60-1.10); GLUCOSE 76 MG/DL (70-104); MAGNESIUM 1.6 MG/DL (1.5-2.4); PHOSPHORUS 2.9 MG/DL (2.3-4.5); POTASSIUM 3.2 MMOL/L (3.5-5.1); SODIUM 140 MMOL/L (135-145); TOTAL CARBON DIOXIDE 24.2 MMOL/L (24-32); TOTAL PROTEIN 6.1 G/DL (6.4-8.2); eGFR > 90 ML/MIN
[2018-08-07] MEDS: fluticasone nasal spray 16GM bottle NS SCH (08:00)
[2018-08-07] MEDS: polyethylene glycol 3350 17gm powd pack PO SCH (08:00)
[2018-08-07] MEDS: heparin, porcine 5000 units/ml vial SQ SCH ×2 (08:13→21:16)
[2018-08-07] MEDS: normal saline 1000ml 1,000 ML IV SCH (10:47)
[2018-08-07 11:00] VITALS: BP 179/95
[2018-08-07] MEDS ORDERED: acetaminophen 325mg tablet PO PRN (14:05)
[2018-08-07] MEDS ORDERED: magnesium hydroxide 30ml (MOM) UD suspension PO PRN (14:05)
[2018-08-07] MEDS ORDERED: bisacodyl 5mg tablet.DR PO PRN (14:05)
[2018-08-07] MEDS ORDERED: magnesium citrate 296ml oral solution PO PRN (14:05)
[2018-08-07] MEDS ORDERED: sennosides 8.6mg tablet PO PRN (14:05)
[2018-08-07] MEDS ORDERED: PEG 3350/Na sulf,bicarb,Cl/KCl oral sol 4 liter bottle PO ONE (14:10)
[2018-08-07 15:00] VITALS: BP 181/83
[2018-08-07 19:00] VITALS: BP 159/89
[2018-08-07] MEDS ORDERED: cephalexin 500mg capsule PO SCH (21:00)
[2018-08-07] MEDS: pyridostigmine br 60mg tablet PO SCH (21:00)
[2018-08-07] MEDS: hydrocortisone 1% OINTMENT 30gm tube TP SCH (21:00)
[2018-08-07] MEDS: busPIRone 5mg tablet PO SCH (21:15)
[2018-08-07] MEDS: bisacodyl 5mg tablet.DR PO SCH (21:17)
[2018-08-07] MEDS: diltiazem 30mg tablet PO SCH (21:17)
[2018-08-07] MEDS: ascorbic acid 500mg tablet PO SCH (21:20)
[2018-08-07] MEDS ORDERED: cephalexin 500mg capsule PO ONE (21:40)
[2018-08-07 23:00] VITALS: BP 177/89
[2018-08-08] MEDS ORDERED: hydrALAZINE 20mg/ml inj. IV PRN
[2018-08-08] MEDS: diltiazem 30mg tablet PO SCH ×4 (02:05→20:03)
[2018-08-08] MEDS: neostigmine methylsulfate 1 MG/ML 10ml vial IV PRN ×2 (02:05→15:29)
[2018-08-08 03:00] VITALS: BP_SYST 157; BP_SYST 159; BP_DIAS 76; BP_DIAS 89
[2018-08-08] MEDS: normal saline 1000ml 1,000 ML IV SCH ×3 (04:25→16:35)
[2018-08-08 06:00] VITALS: BP 146/62
[2018-08-08 07:21] LABS: BASOPHILS # (AUTO) 0.1 X10'3 (0-0.2); BASOPHILS % (AUTO) 0.7 % (0-1); EOSINOPHILS % (AUTO) 0.3 % (0-6); HEMATOCRIT 41.3 % (42.0-52.0); HEMOGLOBIN 13.7 g/dl (14.0-17.9); LYMPHOCYTES # (AUTO) 1.2 X10'3 (1.1-4.8); LYMPHOCYTES % (AUTO) 14.7 % (21-51); MEAN CORPUSCULAR HEMOGLOBIN 30.8 PG (27.0-31.0); MEAN CORPUSCULAR HGB CONC 33.2 % (33.0-36.5); MEAN CORPUSCULAR VOLUME 92.7 FL (78-98); MEAN PLATELET VOLUME 8.5 FL (7.4-10.4); MONOCYTES # (AUTO) 0.5 X10'3 (0-0.9); MONOCYTES % (AUTO) 6.2 % (2-12); NEUTROPHILS # (AUTO) 6.5 X10'3 (1.8-7.7); NEUTROPHILS % (AUTO) 78.1 % (42-75); PLATELET COUNT 375 X10'3 (140-440); RED BLOOD COUNT 4.46 X10'6 (4.70-6.10); RED CELL DISTRIBUTION WIDTH 12.6 % (11.5-14.5); WHITE BLOOD COUNT 8.3 X10'3 (4.5-11.0)
[2018-08-08 07:46] LABS: ALANINE AMINOTRANSFERASE 38 U/L (12-78); ALBUMIN 3.1 G/DL (3.4-5.0); ALBUMIN/GLOBULIN RATIO 0.9 (1.1-1.5); ALKALINE PHOSPHATASE 118 IU/L (46-116); ANION GAP 16 (8-16); ASPARTATE AMINO TRANSFERASE 25 U/L (10-37); BILIRUBIN,TOTAL 0.6 MG/DL (0.1-1.0); BLOOD UREA NITROGEN 9 MG/DL (7-18); BUN/CREATININE RATIO 15.3 (5.4-32.0); CALCIUM 8.7 MG/DL (8.5-10.1); CHLORIDE 102 MMOL/L (99-107); CREATININE 0.59 MG/DL (0.60-1.10); GLUCOSE 111 MG/DL (70-104); MAGNESIUM 1.7 MG/DL (1.5-2.4); PHOSPHORUS 2.2 MG/DL (2.3-4.5); POTASSIUM 3.2 MMOL/L (3.5-5.1); SODIUM 139 MMOL/L (135-145); TOTAL CARBON DIOXIDE 21.3 MMOL/L (24-32); TOTAL PROTEIN 6.5 G/DL (6.4-8.2); eGFR > 90 ML/MIN
[2018-08-08] MEDS ORDERED: DHA PO SCH (08:00)
[2018-08-08] MEDS: hydrocortisone 1% OINTMENT 30gm tube TP SCH ×3 (08:00→20:04)
[2018-08-08] MEDS ORDERED: EPA PO SCH (08:00)
[2018-08-08] MEDS ORDERED: OMEGA PO SCH (08:00)
[2018-08-08] MEDS ORDERED: non-formulary drug (Cholecalciferol (Vitamin D3) (Vitamin D3) 2 TAB) PO SCH (08:00)
[2018-08-08] MEDS: pyridostigmine br 60mg tablet PO SCH ×3 (08:00→20:04)
[2018-08-08] MEDS ORDERED: potassium Cl 20 mEq SR tablet PO SCH (08:00)
[2018-08-08] MEDS ORDERED: KRILL OIL PO SCH (08:00)
[2018-08-08] MEDS: vitamin B comp w/Vit. C tab 1 TAB TABLET PO SCH (08:42)
[2018-08-08] MEDS: cephalexin 500mg capsule PO SCH ×3 (08:42→20:03)
[2018-08-08] MEDS: vitamin D (cholecalciferol) 1,000 unit tablet PO SCH (08:42)
[2018-08-08] MEDS: polyethylene glycol 3350 17gm powd pack PO SCH (08:42)
[2018-08-08] MEDS: multivitamins, therapeutics tablet PO SCH (08:42)
[2018-08-08] MEDS: ascorbic acid 500mg tablet PO SCH ×2 (08:42→20:03)
[2018-08-08] MEDS: bisacodyl 5mg tablet.DR PO SCH ×2 (08:42→20:03)
[2018-08-08] MEDS: fluticasone nasal spray 16GM bottle NS SCH (08:43)
[2018-08-08] MEDS: busPIRone 5mg tablet PO SCH ×2 (08:43→20:02)
[2018-08-08] MEDS: heparin, porcine 5000 units/ml vial SQ SCH ×2 (08:44→20:02)
[2018-08-08 11:00] VITALS: BP 151/73
[2018-08-08 15:00] VITALS: BP 152/72
[2018-08-08 19:00] VITALS: BP 141/65
[2018-08-08] MEDS: lactobacillus rhamnosus 10,000 MMU CELLS/CAPSULE PO SCH (20:03)
[2018-08-08] MEDS: potassium Cl 20 mEq SR tablet PO SCH (20:10)
[2018-08-08 23:00] VITALS: BP 132/61
[2018-08-09] VITALS (15 sets, daily range): BP systolic 127–178; BP diastolic 56–91
[2018-08-09] MEDS: diltiazem 30mg tablet PO SCH ×4 (02:00→19:55)
[2018-08-09 05:57] LABS: BASOPHILS # (AUTO) 0.1 X10'3 (0-0.2); EOSINOPHILS # (AUTO) 0.2 X10'3 (0-0.9); EOSINOPHILS % (AUTO) 2.3 % (0-6); HEMATOCRIT 38.7 % (42.0-52.0); HEMOGLOBIN 12.7 g/dl (14.0-17.9); LYMPHOCYTES # (AUTO) 1.5 X10'3 (1.1-4.8); LYMPHOCYTES % (AUTO) 22.5 % (21-51); MEAN CORPUSCULAR HEMOGLOBIN 30.5 PG (27.0-31.0); MEAN CORPUSCULAR HGB CONC 32.9 % (33.0-36.5); MEAN CORPUSCULAR VOLUME 92.7 FL (78-98); MEAN PLATELET VOLUME 8.4 FL (7.4-10.4); MONOCYTES # (AUTO) 0.7 X10'3 (0-0.9); MONOCYTES % (AUTO) 10.9 % (2-12); NEUTROPHILS # (AUTO) 4.2 X10'3 (1.8-7.7); NEUTROPHILS % (AUTO) 63.3 % (42-75); PLATELET COUNT 356 X10'3 (140-440); RED BLOOD COUNT 4.18 X10'6 (4.70-6.10); RED CELL DISTRIBUTION WIDTH 12.5 % (11.5-14.5); WHITE BLOOD COUNT 6.7 X10'3 (4.5-11.0)
[2018-08-09 06:31] LABS: ALANINE AMINOTRANSFERASE 31 U/L (12-78); ALBUMIN 2.9 G/DL (3.4-5.0); ALBUMIN/GLOBULIN RATIO 0.9 (1.1-1.5); ALKALINE PHOSPHATASE 105 IU/L (46-116); ANION GAP 14 (8-16); ASPARTATE AMINO TRANSFERASE 19 U/L (10-37); BILIRUBIN,TOTAL 0.5 MG/DL (0.1-1.0); BLOOD UREA NITROGEN 7 MG/DL (7-18); BUN/CREATININE RATIO 10.4 (5.4-32.0); CALCIUM 8.4 MG/DL (8.5-10.1); CHLORIDE 106 MMOL/L (99-107); CREATININE 0.67 MG/DL (0.60-1.10); GLUCOSE 66 MG/DL (70-104); MAGNESIUM 1.7 MG/DL (1.5-2.4); PHOSPHORUS 2.6 MG/DL (2.3-4.5); POTASSIUM 3.1 MMOL/L (3.5-5.1); SODIUM 141 MMOL/L (135-145); TOTAL CARBON DIOXIDE 21.3 MMOL/L (24-32); eGFR > 90 ML/MIN
[2018-08-09] MEDS: neostigmine methylsulfate 1 MG/ML 10ml vial IV PRN (07:56)
[2018-08-09] MEDS: hydrocortisone 1% OINTMENT 30gm tube TP SCH ×3 (08:00→20:06)
[2018-08-09] MEDS: pyridostigmine br 60mg tablet PO SCH ×3 (08:00→20:05)
[2018-08-09] MEDS: fluticasone nasal spray 16GM bottle NS SCH (08:01)
[2018-08-09] MEDS: multivitamins, therapeutics tablet PO SCH (08:03)
[2018-08-09] MEDS: ascorbic acid 500mg tablet PO SCH ×2 (08:03→19:55)
[2018-08-09] MEDS: vitamin D (cholecalciferol) 1,000 unit tablet PO SCH (08:03)
[2018-08-09] MEDS: bisacodyl 5mg tablet.DR PO SCH ×2 (08:05→19:55)
[2018-08-09] MEDS: lactobacillus rhamnosus 10,000 MMU CELLS/CAPSULE PO SCH ×2 (08:05→19:54)
[2018-08-09] MEDS: busPIRone 5mg tablet PO SCH ×2 (08:05→19:54)
[2018-08-09] MEDS: cephalexin 500mg capsule PO SCH ×3 (08:06→19:55)
[2018-08-09] MEDS: vitamin B comp w/Vit. C tab 1 TAB TABLET PO SCH (08:06)
[2018-08-09] MEDS: polyethylene glycol 3350 17gm powd pack PO SCH (08:06)
[2018-08-09] MEDS: heparin, porcine 5000 units/ml vial SQ SCH ×2 (08:14→19:55)
[2018-08-09] MEDS ORDERED: fentaNYL/PF 50MCG/1 ML 2ML syringe ONE (12:19)
[2018-08-09] MEDS ORDERED: MIDAZolam 5mg/5ml vial ONE (12:19)
[2018-08-09] MEDS: normal saline 1000ml 1,000 ML IV SCH (16:06)
[2018-08-09] MEDS: potassium Cl 20 mEq SR tablet PO SCH (19:55)
[2018-08-10] MEDS: diltiazem 30mg tablet PO SCH ×3 (02:39→13:10)
[2018-08-10 03:02] VITALS: BP 145/70
[2018-08-10 06:22] LABS: BASOPHILS % (AUTO) 0.5 % (0-1); EOSINOPHILS # (AUTO) 0.2 X10'3 (0-0.9); EOSINOPHILS % (AUTO) 3.3 % (0-6); HEMATOCRIT 40.3 % (42.0-52.0); HEMOGLOBIN 13.3 g/dl (14.0-17.9); LYMPHOCYTES # (AUTO) 1.5 X10'3 (1.1-4.8); MEAN CORPUSCULAR HEMOGLOBIN 30.3 PG (27.0-31.0); MEAN CORPUSCULAR HGB CONC 32.9 % (33.0-36.5); MEAN PLATELET VOLUME 7.8 FL (7.4-10.4); MONOCYTES # (AUTO) 0.7 X10'3 (0-0.9); MONOCYTES % (AUTO) 10.8 % (2-12); NEUTROPHILS # (AUTO) 3.8 X10'3 (1.8-7.7); NEUTROPHILS % (AUTO) 61.4 % (42-75); PLATELET COUNT 364 X10'3 (140-440); RED BLOOD COUNT 4.38 X10'6 (4.70-6.10); RED CELL DISTRIBUTION WIDTH 12.5 % (11.5-14.5); WHITE BLOOD COUNT 6.2 X10'3 (4.5-11.0)
[2018-08-10 06:42] LABS: ALANINE AMINOTRANSFERASE 29 U/L (12-78); ALBUMIN 2.8 G/DL (3.4-5.0); ALBUMIN/GLOBULIN RATIO 0.9 (1.1-1.5); ALKALINE PHOSPHATASE 104 IU/L (46-116); ANION GAP 13 (8-16); ASPARTATE AMINO TRANSFERASE 17 U/L (10-37); BILIRUBIN,TOTAL 0.4 MG/DL (0.1-1.0); BLOOD UREA NITROGEN 5 MG/DL (7-18); BUN/CREATININE RATIO 7.2 (5.4-32.0); CALCIUM 8.5 MG/DL (8.5-10.1); CHLORIDE 107 MMOL/L (99-107); CREATININE 0.69 MG/DL (0.60-1.10); GLUCOSE 96 MG/DL (70-104); MAGNESIUM 1.7 MG/DL (1.5-2.4); PHOSPHORUS 2.8 MG/DL (2.3-4.5); POTASSIUM 3.5 MMOL/L (3.5-5.1); SODIUM 140 MMOL/L (135-145); TOTAL CARBON DIOXIDE 20.1 MMOL/L (24-32); eGFR > 90 ML/MIN
[2018-08-10] MEDS: normal saline 1000ml 1,000 ML IV SCH (06:43)
[2018-08-10 07:00] VITALS: BP 138/67
[2018-08-10] MEDS: polyethylene glycol 3350 17gm powd pack PO SCH (07:57)
[2018-08-10] MEDS: bisacodyl 5mg tablet.DR PO SCH (07:57)
[2018-08-10] MEDS: vitamin D (cholecalciferol) 1,000 unit tablet PO SCH (07:58)
[2018-08-10] MEDS: busPIRone 5mg tablet PO SCH (07:58)
[2018-08-10] MEDS: multivitamins, therapeutics tablet PO SCH (07:58)
[2018-08-10] MEDS: lactobacillus rhamnosus 10,000 MMU CELLS/CAPSULE PO SCH (07:58)
[2018-08-10] MEDS: vitamin B comp w/Vit. C tab 1 TAB TABLET PO SCH (07:58)
[2018-08-10] MEDS: heparin, porcine 5000 units/ml vial SQ SCH (07:58)
[2018-08-10] MEDS: cephalexin 500mg capsule PO SCH ×2 (07:58→13:10)
[2018-08-10] MEDS: ascorbic acid 500mg tablet PO SCH (07:58)
[2018-08-10] MEDS: pyridostigmine br 60mg tablet PO SCH ×2 (08:00→12:18)
[2018-08-10] MEDS: hydrocortisone 1% OINTMENT 30gm tube TP SCH ×2 (08:00→12:19)
[2018-08-10] MEDS: fluticasone nasal spray 16GM bottle NS SCH (08:10)
[2018-08-10 11:00] VITALS: BP 154/78
[2018-08-10 15:00] VITALS: BP 148/68
== END 2018-08-10 16:25 | disposition home or self-care (01) | DRG 392 ==
LOC: ER 13:56 → ED HOLD 18:46 → EDBEDREQSVC 08-06 16:35 → PCU 3S 08-06 17:49
PROVIDERS: ADMIT Internal Medicine Critical Care Medicine; ATTEND Internal Medicine Critical Care Medicine
PROC: 0DJD8ZZ Inspection of Lower Intestinal Tract, Via Natural or Artificial Opening Endoscopic (ICD-10-PCS; principal; 2018-08-09)
DX: K59.8 Other specified functional intestinal disorders (principal); K59.39 Other megacolon; K59.00 Constipation, unspecified; Z66 Do not resuscitate; G35 Multiple sclerosis; Z99.3 Dependence on wheelchair; Z79.899 Other long term (current) drug therapy; Z83.3 Family history of diabetes mellitus; Z82.61 Family history of arthritis; Z83.49 Family history of other endocrine, nutritional and metabolic diseases
CPT/HCPCS: 36415; 45393; 74018; 74176; 80053; 83735; 84100; 85025; 85610; 87070; 97110; 97162; 97530; 99152; 99285; A4620; G0378; J0360; J1644; J2250; J2710; J3010; J7030